=== PATIENT | female | born 1965 | race Caucasian/White ===

== ENCOUNTER 2016-08-09 19:00 | Emergency (ER) | payer MEDICAID ==
[~2016-08-09] VITALS: Ht 154.9 cm; Wt 59.0 kg
[2016-08-09 19:18] VITALS: BP 123/88
== END 2016-08-09 22:04 | disposition home or self-care (01) ==
LOC: ER 19:04
DX: J02.9 Acute pharyngitis, unspecified (principal); J45.909 Unspecified asthma, uncomplicated